=== PATIENT | male | born 1940 | race Caucasian/White ===

== ENCOUNTER 2023-10-05 01:56 | Inpatient (IN) | payer MEDICARE ==
[2023-10-05 02:37] VITALS: BMI 23.8
[2023-10-05 03:34] LABS: #Basophils 0.04 10x3/uL (0.0-0.2); #Eosinphils 0.18 10x3/uL (0.0-0.5); #Monocytes 0.68 10x3/uL (0.0-1.1); #Neutrophils 6.12 10x3/uL (1.5-8.4); %Basophils 0.5 % (0.0-2.0); %Eosinophils 2.1 % (0.0-6.0); %Lymphocytes 16.8 % (18.0-47.0); %Neutrophils 72.1 % (40.0-75.0); Hemoglobin 12.7 g/dL (13.5-17.5); Mean Corpuscular HGB CONC 32.6 g/dL (32.0-36.0); Mean Corpuscular Hemoglobin 32.7 pg (27.0-33.0); Mean Corpuscular Volume 100.5 fL (81.2-95.1); Mean Platelet Volume 9.8 fL (7.4-10.4); Platelet Count 297 10x3/uL (150-450); RBC Distribution Width 15.7 % (11.5-14.5); Red Blood Cell (RBC) Count 3.88 10x6/uL (4.32-5.72); White Blood Cell (WBC) Count 8.5 10x3/uL (3.5-10.5)
[2023-10-05 03:45] LABS: ALT (SGPT) 31 U/L (8-55); AST (SGOT) 49 U/L (5-34); Albumin 3.6 g/dL (3.4-4.8); Alkaline Phosphatase 76 U/L (40-110); Anion Gap 15 mmol/L (10-20); BUN (Urea Nitrogen) 31 mg/dL (8.4-25.7); Bilirubin, Total 0.5 mg/dL (0.2-1.2); Calc. Creatinine Clearance 82 mL/min (70-130); Calcium 9.1 mg/dL (7.8-10.44); Carbon Dioxide 27 mmol/L (23-31); Chloride 107 mmol/L (98-107); Estimated GFR 86; Globulin 2.5 g/dL (2.4-3.5); Glucose 111 mg/dL (83-110); Potassium 4.3 mmol/L (3.5-5.1); Protein, Total 6.1 g/dL (5.8-8.1); Sodium 145 mmol/L (136-145)
[2023-10-05 03:54] LABS: Troponin I 3.015 ng/mL (< 0.028)
[2023-10-05 05:47] LABS: #Basophils 0.02 10x3/uL (0.0-0.2); #Eosinphils 0.17 10x3/uL (0.0-0.5); #Monocytes 0.56 10x3/uL (0.0-1.1); #Neutrophils 3.91 10x3/uL (1.5-8.4); %Basophils 0.3 % (0.0-2.0); %Eosinophils 2.9 % (0.0-6.0); %Lymphocytes 19.8 % (18.0-47.0); %Monocytes 9.6 % (0.0-10.0); %Neutrophils 66.9 % (40.0-75.0); Hematocrit 35.2 % (38.8-50.0); Hemoglobin 11.4 g/dL (13.5-17.5); Mean Corpuscular HGB CONC 32.4 g/dL (32.0-36.0); Mean Corpuscular Hemoglobin 31.8 pg (27.0-33.0); Mean Corpuscular Volume 98.3 fL (81.2-95.1); Mean Platelet Volume 9.4 fL (7.4-10.4); Platelet Count 237 10x3/uL (150-450); RBC Distribution Width 15.6 % (11.5-14.5); Red Blood Cell (RBC) Count 3.58 10x6/uL (4.32-5.72); White Blood Cell (WBC) Count 5.9 10x3/uL (3.5-10.5)
[2023-10-05 06:06] LABS: Anion Gap 14 mmol/L (10-20); BUN (Urea Nitrogen) 28 mg/dL (8.4-25.7); Calc. Creatinine Clearance 90 mL/min (70-130); Calcium 8.7 mg/dL (7.8-10.44); Carbon Dioxide 23 mmol/L (23-31); Chloride 109 mmol/L (98-107); Estimated GFR 88; Glucose 88 mg/dL (83-110); Potassium 3.8 mmol/L (3.5-5.1); Sodium 142 mmol/L (136-145)
[2023-10-05] MEDS: Enoxaparin 100 MG (1 mL) SYRINGE SC SCH (08:44)
[2023-10-05] MEDS ORDERED: Communication Order-Pharmacy FS SCH (08:45)
[2023-10-05 08:48] LABS: Troponin I 7.842 ng/mL (< 0.028)
[2023-10-05] MEDS: Aspirin 325 MG TAB PO SCH (08:49)
[2023-10-05] MEDS ORDERED: Lidocaine 1% (PF) 30 ML VIAL ONE (09:15)
[2023-10-05] MEDS ORDERED: Heparin 10,000 UNITS/ 10 ML VIAL ONE (09:15)
[2023-10-05] MEDS ORDERED: Nitroglycerin 50 MG/250 ML BOT 250 ML ONE (09:15)
[2023-10-05 09:43] LABS: PTT 30.8 sec (22.0-33.0); Prothrombin Time 10.9 sec (9.5-12.1)
[2023-10-05] MEDS ORDERED: Midazolam HCl 2 mg/2 ml Vial ONE (10:14)
[2023-10-05] MEDS ORDERED: fentaNYL 50 mcg/mL 1 mL Vial ONE ×2 (10:14→11:18)
[2023-10-05] MEDS ORDERED: Clopidogrel Bisulfate 300 MG TAB ONE (11:07)
[2023-10-05] MEDS ORDERED: Nitroglycerin 0.4 MG TAB (25 Tab Bottle) SL PRN (11:23)
[2023-10-05] MEDS: Losartan 50 MG TAB PO SCH (12:50)
[2023-10-05] MEDS: Sodium Chloride 0.9% 1,000 ML IV SCH ×2 (12:50→14:55)
[2023-10-05] MEDS: Amlodipine 5 MG TAB PO SCH (14:50)
[2023-10-05] MEDS ORDERED: Atorvastatin Calcium 40 MG TAB PO SCH (21:00)
[2023-10-05] MEDS: Rosuvastatin 20 MG TAB PO SCH (21:37)
[2023-10-06 03:40] LABS: #Basophils 0.03 10x3/uL (0.0-0.2); #Eosinphils 0.18 10x3/uL (0.0-0.5); #Neutrophils 4.26 10x3/uL (1.5-8.4); %Basophils 0.5 % (0.0-2.0); %Lymphocytes 16.1 % (18.0-47.0); %Monocytes 9.9 % (0.0-10.0); Hematocrit 34.1 % (38.8-50.0); Hemoglobin 11.3 g/dL (13.5-17.5); Mean Corpuscular HGB CONC 33.1 g/dL (32.0-36.0); Mean Corpuscular Hemoglobin 32.4 pg (27.0-33.0); Mean Corpuscular Volume 97.7 fL (81.2-95.1); Mean Platelet Volume 9.4 fL (7.4-10.4); Platelet Count 216 10x3/uL (150-450); RBC Distribution Width 15.3 % (11.5-14.5); Red Blood Cell (RBC) Count 3.49 10x6/uL (4.32-5.72); White Blood Cell (WBC) Count 6.1 10x3/uL (3.5-10.5)
[2023-10-06 04:02] LABS: ALT (SGPT) 28 U/L (8-55); AST (SGOT) 62 U/L (5-34); Albumin 2.9 g/dL (3.4-4.8); Alkaline Phosphatase 69 U/L (40-110); Anion Gap 11 mmol/L (10-20); BUN (Urea Nitrogen) 14 mg/dL (8.4-25.7); Bilirubin, Total 0.6 mg/dL (0.2-1.2); Calc. Creatinine Clearance 103 mL/min (70-130); Calcium 8.6 mg/dL (7.8-10.44); Carbon Dioxide 23 mmol/L (23-31); Cardiac Risk 3.8 (Less than 4.5); Chloride 110 mmol/L (98-107); Cholesterol 134 mg/dl (< 200 Desired); Estimated GFR 92; Globulin 2.3 g/dL (2.4-3.5); Glucose 92 mg/dL (83-110); HDL Cholesterol 35 mg/dL (>60 Neg Risk); LDL Cholesterol, Calculated 82 mg/dL; Potassium 3.9 mmol/L (3.5-5.1); Protein, Total 5.2 g/dL (5.8-8.1); Sodium 140 mmol/L (136-145); Triglycerides 86 mg/dL (Less than 150)
[2023-10-06] MEDS: Pantoprazole DR 40 MG TAB PO SCH (08:25)
[2023-10-06] MEDS: Losartan 50 MG TAB PO SCH (08:25)
[2023-10-06] MEDS: Amlodipine 5 MG TAB PO SCH (08:25)
[2023-10-06] MEDS: Clopidogrel Bisulfate 75 MG TAB PO SCH (08:26)
[2023-10-06 12:30] VITALS: BP 123/66; TEMP 98.1
[2023-10-06 13:11] LABS: Hemoglobin A1c 5.2 % (4.0-6.0)
== END 2023-10-06 13:55 | disposition home or self-care (01) | DRG 322 ==
LOC: CSHTELE 01:56
PROVIDERS: ADMIT Hospitalist; ATTEND Family Medicine
PROC: 027034Z Dilation of Coronary Artery, One Artery with Drug-eluting Intraluminal Device, Percutaneous Approach (ICD-10-PCS; principal; 2023-10-06)
PROC: 4A023N7 Measurement of Cardiac Sampling and Pressure, Left Heart, Percutaneous Approach (ICD-10-PCS; 2023-10-06)
PROC: B2111ZZ Fluoroscopy of Multiple Coronary Arteries using Low Osmolar Contrast (ICD-10-PCS; 2023-10-06)
PROC: B241ZZ3 Ultrasonography of Multiple Coronary Arteries, Intravascular (ICD-10-PCS; 2023-10-06)
DX: I21.4 Non-ST elevation (NSTEMI) myocardial infarction (principal); I48.0 Paroxysmal atrial fibrillation; E11.9 Type 2 diabetes mellitus without complications; I10 Essential (primary) hypertension; E78.5 Hyperlipidemia, unspecified; I25.10 Atherosclerotic heart disease of native coronary artery without angina pectoris; M54.12 Radiculopathy, cervical region; Z95.5 Presence of coronary angioplasty implant and graft; Z79.899 Other long term (current) drug therapy
CPT/HCPCS: 36415; 80053; 80061; 83036; 84484; 85025; 85610; 85730; 92928; 92978; 92979; 93005; 93010; 93306; 93458; 99152; 99153; C1753; C1760; C1769; C1874; C1887; C9600; J1644; J2001; J2250; J3010; J7050